=== PATIENT | female | born 1955 | race Two or more races ===

== ENCOUNTER → 2024-06-01 | Outpatient (CLI) | payer OTHER, MEDICAID, SELFPAY ==
[2024-06-01 10:04] LABS: Collection Type, Urine Clean Catch
[2024-06-01 10:24] LABS: Basophils % (Auto) 1 % (0-2.5); Eosinophils % (Auto) 0 % (0-10); Hematocrit 36.5 % (36.0-46.0); Hemoglobin 11.8 g/dL (12.0-16.0); Immature Granulocytes % (Auto) 2 % (0-0); Immature Granulocytes Auto 0.09 Thou/mm3 (0.00-0.00); Lymphocytes # (Auto) 1.1 Thou/mm3 (1.0-4.8); Lymphocytes % (Auto) 18 % (10-50); Mean Corpuscular HGB Conc 32.3 g/dl (31.0-37.0); Mean Corpuscular Hemoglobin 28.8 pg (25.0-35.0); Mean Corpuscular Volume 89 fL (80-100); Monocytes # (Auto) 0.4 Thou/mm3 (0.0-0.8); Monocytes % (Auto) 6 % (0-12); Neutrophils # (Auto) 4.5 Thou/mm3 (1.8-7.7); Neutrophils % (Auto) 74 % (37-80); Nucleated Red Blood Cell % 0 /100 WBC (0); Platelet Count 148 Thou/mm3 (140-440); RDW Standard Deviation 43.9 fL (36.4-46.3); White Blood Count 6.1 Thou/mm3 (3.6-11.0)
[2024-06-01 10:40] LABS: Bilirubin,Urine Negative (Negative); Blood,Urine Negative (Negative); Clarity,Urine Clear (Clear/Hazy); Color,Urine Yellow (Lt Yel-Yel); Glucose, Urine 2+ (Negative); Ketones,Urine Negative (Negative); Leukocyte Esterase,Urine Negative (Negative); Nitrite,Urine Negative (Negative); Protein,Urine Negative (Neg - Trace); RBC,Urine < 1 /hpf (0-3); Specific Gravity,Urine 1.012 (1.001-1.035); Squamous Epithelial Cell,Urine 6 /hpf (0-5); Urobilinogen,Urine Negative mg/dL (0.0-1.0); WBC,Urine < 1 /hpf (0-5)
[2024-06-01 10:46] LABS: Glucose Estimated Average 171 mg/dL (80-131); Hemoglobin A1C 7.6 % Hgb (4.8-6.0)
[2024-06-01 11:01] LABS: Alanine Aminotransferase 15 U/L (10-49); Albumin, Serum 4.4 gm/dL (3.4-4.8); Albumin/Globulin Ratio 1.8 (1.2-2.2); Alkaline Phosphatase 128 U/L (46-116); Anion Gap 6 (7-16); Aspartate Amino Transferase 14 U/L (0-34); BUN/Creatinine Ratio 20 Ratio (12-20); Bilirubin,Total 0.6 mg/dL (0.3-1.2); Blood Urea Nitrogen 12 mg/dL (9-23); Calcium 9.4 mg/dL (8.3-10.6); Calcium (Corrected) 9.4 mg/dL (8.5-10.1); Carbon Dioxide 30.9 mMol/L (20.0-31.0); Chloride 101 mMol/L (98-107); Cholesterol 148 mg/dL (132-200); Creatinine (Component) 0.6 mg/dL (0.6-1.3); Globulin 2.4 gm/dL (2.3-3.5); Glucose 156 mg/dL (74-106); HDL Cholesterol 74 mg/dL (40-60); LDL Cholesterol,Calculated 56 mg/dL (0-130); Osmolality,Calculated 278 (275-295); Potassium 4.2 mMol/L (3.4-5.1); Sodium 138 mMol/L (136-145); Total Protein 6.8 gm/dL (5.7-8.2); Triglycerides 88 mg/dL (30-150); eGFR > 60 See Note
[2024-06-01 11:12] LABS: Creatinine MALB Rnd Ur 48 mg/dL (30-125); Microalbumin, Random Urine < 3 mg/L (0-300)
== END | disposition home or self-care (01) ==
PROVIDERS: PCP Family Medicine; Referring Provider Family Medicine; Visit Provider Family Medicine
DX: E11.65 Type 2 diabetes mellitus with hyperglycemia (principal)
CPT/HCPCS: 36415; 80053; 80061; 81001; 82043; 82570; 83036; 85025

== ENCOUNTER → 2024-07-06 | Outpatient (CLI) | payer MEDICAID, SELFPAY ==
--- NOTE | 2024-07-06 08:30 | XR_ITS ---
Examination: Bone densitometry Date and time of exam:July 06, 2024 0827 hours INDICATIONS: Menopause age 54, diabetes Technique: Lumbar spine and hip total bone mineralization values of an calculated. Peak reference and age match control results have been displayed. Findings: Lumbar spine total bone mineralization is0.959 gm/cm2. This is 0.8 standard deviations below peak reference. This is 1.3 standard deviations above age-matched controls. Hip total bone mineralization is 0.657 gm/cm2 This is 2.3 standard deviations below peak reference. This is 0.8 standard deviations below age-matched controls Impression: There is normal mineralization based on lumbar spine measurements. There is osteoporosis based on hip measurements
[2024-07-06 10:47] LABS: Amphetamine/Methamp Scrn,U Negative (Negative); Barbiturate Screen,Urine Negative (Negative); Benzodiazepines Screen,Urine Negative (Negative); Benzoylecgonine Screen, Ur Negative (Negative); Fentanyl Screen,Urine Negative (Negative); Opiate Screen,Urine Positive (Negative); THC Screen,Urine Negative (Negative)
== END | disposition home or self-care (01) ==
LOC: CDIM 08:14 → COPL 09:28 → SLDO 09:28
PROVIDERS: Referring Provider Family Medicine; Visit Provider Radiology Diagnostic Radiology
DX: M81.8 Other osteoporosis without current pathological fracture (principal); M54.40 Lumbago with sciatica, unspecified side
CPT/HCPCS: 77080; 80307

== ENCOUNTER → 2024-09-24 | Outpatient (CLI) | payer OTHER, SELFPAY ==
--- NOTE | 2024-09-24 10:30 | XR_ITS ---
Examination: MRI brain without intravenous contrast. Date and time of exam: September 24, 2024 1023 hrs. Indications: Increasing memory loss beginning 2 years ago Technique: Multiple axial and sagittal images of the brain obtained. Siemens high-resolution 1.5 Alissa short bore scanners utilized. Sagittal sections, T1-weighted, TR 500, TE 14, are performed. Axial sections proton-density and T2-weighted have been obtained. Inversion recovery axial images, TR 9, 260, TE 111, TI 2500. Diffusion weighted images, axial sections, TR 4800, TE 128, B value 1000 Axial sections, ADC map, TR 4800, TE 128 Findings: Enlargement of the sella turcica is not present. The optic chiasm and infundibular are not remarkable. Prepontine and interpeduncular cisterns are not enlarged. There is no localized enlargement of the medulla or connor. Fourth ventricle and cerebellar tonsils appear normal in position. No subacute area of hemorrhage density is seen. Mass in the cerebellopontine angle region is not evident. Globes symmetrical. Orbital musculature including medial lateral rectus muscles do not exhibit abnormality. Diffusion-weighted images demonstrate no focus of restricted diffusion. Increased white matter signal mild Mass effect upon the ventricular system is not identified. Impression: Negative for acute hemorrhage, mass effect or midline shift No acute infarct Moderate atrophy
== END | disposition home or self-care (01) ==
LOC: SMRI 10:00
PROVIDERS: PCP Family Medicine; Referring Provider Family Medicine; Visit Provider Family Medicine
DX: G31.9 Degenerative disease of nervous system, unspecified (principal)
CPT/HCPCS: 70551

== ENCOUNTER 2025-01-20 01:18 | Emergency (ER) | payer OTHER, MEDICAID, SELFPAY ==
[2025-01-20 01:19] VITALS: BMI 26.2
[2025-01-20 02:09] VITALS: BP 195/84; PULSE 89; RESP 16; TEMP 37; O2SAT 97
[2025-01-20] MEDS: HYDROcodone/APAP 5/325 TABLET 1 TAB PO (02:26)
--- NOTE | 2025-01-20 02:35 | PD.EDRECHK ---
ED Recheck Abnl Lab Rx-RME/HPI General Chief Complaint: General Adult/Misc Complain Stated Complaint: WHOLE BODY PAIN Time Seen by Provider: 01/20/25 02:17 Arrival date/time: 01/20/25 01:18 69F with history of DM presents to ED with generalized body pains and shakiness because patient ran out of her meds. Patient has been taking 4 10-325 Norcos for over a year for her chronic back pain. Patient is on a pain contract. Patient will see prescriber on Thursday. Limitations: no limitations Related Data Home Medications ?Medication ?Instructions ?Recorded ?Confirmed estradiol 1 mg tablet 1 mg PO QDAY 05/03/20 05/03/20 hydrocodone 7.5 mg-acetaminophen 1 tab PO TID 05/03/20 05/03/20 325 mg tablet insulin human U-100 NPH-regulr 25 unit subcut QPM 05/03/20 05/03/20 70-30 mix 100 unit/mL subcutaneous susp (Novolin 70/30 U-100 Insulin) insulin human U-100 NPH-regulr 30 unit subcut QAM 05/03/20 05/03/20 70-30 mix 100 unit/mL subcutaneous susp (Novolin 70/30 U-100 Insulin) loratadine 10 mg tablet 10 mg PO QDAY 05/03/20 05/03/20 triamcinolone acetonide 0.1 % 1 applic topical BID 05/03/20 05/03/20 topical cream Previous Rx's ?Medication ?Instructions ?Recorded acetaminophen 500 mg capsule 1,000 mg (2 x 500 mg) PO Q6H PRN 05/03/20 fever or pain #30 caps ondansetron HCl 4 mg tablet 4 mg PO QID PRN nausea and 05/03/20 (Zofran) vomiting #10 tabs phenazopyridine 200 mg tablet 200 mg PO TID PRN pain #9 tabs 11/03/21 (Pyridium) ibuprofen 600 mg tablet 600 mg PO Q6H #30 tabs 09/11/22 hydrocodone 10 mg-acetaminophen 1 tab PO QDAY PRN pain #5 tabs 01/20/25 325 mg tablet Allergies Allergy/AdvReac Type Severity Reaction Status Date / Time No Known Allergies Allergy Verified 08/10/22 21:46 Review of Systems Review of Systems Systems Reviewed: All systems reviewed, normal except as documented Constitutional Constitutional: Reports system reviewed and no additional complaints, except as documented, Reports as per HPI, Reports body ache(s), Denies fever(s) and Denies headache(s) ENT Ears, Nose, Mouth, and Throat: Denies disequilibrium and Denies headache(s) Cardiovascular Cardiovascular: Reports system reviewed and no additional complaints, except as documented, Denies chest pain and Denies dyspnea Respiratory Respiratory: Reports system reviewed and no additional complaints, except as documented, Denies cough and Denies dyspnea Gastrointestinal Gastrointestinal: Reports system reviewed and no additional complaints, except as documented, Denies abdominal pain, Denies nausea and Denies vomiting Neurologic Neurologic: Reports system reviewed and no additional complaints, except as documented, Reports as per HPI, Denies confusion, Denies disequilibrium, Denies headache(s) and Reports tremor(s) Psychiatric Psychiatric: Denies confusion Past Medical History Past Medical History CARDIAC: Negative Congestive Heart Failure RESPIRATORY: Positive Chronic Obstructive Pulmonary Disease (COPD) GENITOURINARY: Negative Renal Disease ENDOCRINE: Positive Diabetes Mellitus Type 1; Negative Diabetes Mellitus Type 2 OTHER HISTORY: Positive Blood Transfusions Surgical History SURGICAL: Positive Hysterectomy Social History SMOKING STATUS: Never smoker SUBSTANCE USE: does not use ED Exam General Limitations: Present no limitations General appearance: Present alert, in no apparent distress and anxious Head Head exam: Present atraumatic Eye Eye exam: Present normal appearance, PERRL and EOMI ENT ENT exam: Present normal exam, normal oropharynx and mucous membranes moist Neck Neck exam: Present normal inspection, full ROM and trachea midline Chest Chest inspection: Present normal inspection and symmetric chest wall rise Respiratory Respiratory exam: Present normal lung sounds bilaterally Cardiovascular Cardiovascular exam: Present regular rate, normal rhythm and normal heart sounds Abdominal Exam Abdominal exam: Present soft and normal bowel sounds Extremities Exam Extremities exam: Present normal inspection and full ROM Back Exam Back exam: Present normal inspection and full ROM Neurological Exam Neurological exam: Present alert, oriented X3 and CN II-XII intact Psychiatric Psychiatric exam: Present normal affect and normal mood Skin Skin exam: Present warm, dry, intact and normal color Course Quality Measures none Orders Category Date Time Status HYDROcodone*/APAP 5/325 [[place] 5/325] Med 01/20/25 02:18 Discontinued 1 tab PO X1 ONE Vital Signs Vital signs: Vital Signs Temperature 98.6 F 01/20/25 02:09 Pulse Rate 89 01/20/25 02:09 Respiratory Rate 16 01/20/25 02:09 Blood Pressure 195/84 H 01/20/25 02:09 Pulse Oximetry (%) 97 01/20/25 02:09 Oxygen Delivery Method Room Air 01/20/25 02:09 O2 at 97% on RA and WNLs Recheck / Abnormal Lab / Rx MDM Narrative MDM Narrative:: 69F with history of DM presents to ED with generalized body pains and shakiness because patient ran out of her meds. Patient has been taking 4 10-325 Norcos for over a year for her chronic back pain. Patient is on a pain contract. Patient will see prescriber on Thursday. Physical exam reveals generalized restlessness. Patient is afebrile, alert, but anxious. Meds and activities counselor given. Patient data External records reviewed:: [facility] previous records Clinical information provided by:: patient Social determinants that could affect healthcare access:: none Patient has the following chronic illnesses:: DM How is presenting disease/condition affected by chronic disease/condition?: exacerbated by Evaluation data The following diagnostics were reviewed and interpreted by me:: other (specify) (none) Lab and/or radiology exams considered but not ordered:: not ordered Interpretation Summary: n/a Medications / Prescriptions Medications or Prescriptions considered but not ordered:: ordered Medication administrations:: Medication Administration History Discontinued Medications Hydrocodone Bitart/Acetaminophen (Hydrocodone/Apap 5/325 Tablet) 1 tab PO X1 ONE Stop: 01/20/25 02:19 Last Admin: 01/20/25 02:26 Dose: 1 tab Documented By: OA above Consultations Consultation(s) initiated? (list below): No Diagnosis Recheck Differential Diagnosis: encounter for medication refill, encounter for wound recheck, encounter for recheck of burn, encounter for removal of sutures, warfarin-induced coagulopathy and other (opioid withdrawal) Most likely diagnosis given after review of the tests above:: opioid withdrawal Admission Indicated Admission indicated?: not indicated Admission Request Was there a request for admission?: No Disposition Plan Disposition Plan: Discharge Discharge Attestation Discharge Attestation: The patient and all family members were given an opportunity to ask questions and understood the discharge instructions. Discharge instructions specifically effects, indications for sooner follow up or return to the emergency department, and the expected course of current diagnosis. Patient condition: Stable Discharge Plan Plan Patient Disposition: HOME (Self Care) Discharge Disposition comment: Stable Prescriptions/Referrals Prescriptions/Med Rec: New hydrocodone-acetaminophen 10-325 mg tablet 1 tab PO QDAY MDD 1 PRN (Reason: pain) Qty: 5 0RF No Action Novolin 70/30 U-100 Insulin 100 unit/mL (70-30) suspension 25 unit SUBCUT QPM Patient Comments: INJECT 30 UNITS SUBCUTANEOUSLY IN THE MORNING AND 25 UNITS IN THE EVENING Novolin 70/30 U-100 Insulin 100 unit/mL (70-30) suspension 30 unit SUBCUT QAM Patient Comments: INJECT 30 UNITS SUBCUTANEOUSLY IN THE MORNING AND 25 UNITS IN THE EVENING triamcinolone acetonide 0.1 % cream 1 applic TOPICAL BID Patient Comments: APPLY TO THE AFFECTED AREA(S) TWICE DAILY hydrocodone-acetaminophen 7.5-325 mg tablet 1 tab PO TID Patient Comments: TAKE ONE TABLET BY MOUTH THREE TIMES DAILY NEEDED FOR PAIN loratadine 10 mg tablet 10 mg PO QDAY estradiol 1 mg tablet 1 mg PO QDAY ondansetron HCl [Zofran] 4 mg tablet 4 mg PO QID PRN (Reason: nausea and vomiting) Qty: 10 0RF acetaminophen 500 mg capsule 1,000 mg PO Q6H PRN (Reason: fever or pain) Qty: 30 0RF phenazopyridine [Pyridium] 200 mg tablet 200 mg PO TID PRN (Reason: pain) Qty: 9 0RF ibuprofen 600 mg tablet 600 mg PO Q6H Qty: 30 0RF Problem List Clinical Impression: Opioid withdrawal Patient/Caregiver Discharge Instructions Education Materials: Hyperalgesia Opioid Induced, ED Opioid Withdrawal Additional Instructions: Please follow-up with PCP within 24-48 hours and return immediately if symptoms worsen. Would recommend tapering down with PCP/pain specialist. Print Language: Thai Stand Alone Forms: Patient Portal Info Letter PA/ROLLED HAM LACER Supervising Physician PA/ROLLED HAM LACER Supervising Physician: Dr. Meneses
== END 2025-01-20 02:35 | disposition home or self-care (01) ==
LOC: SERX 02:24
PROVIDERS: Emergency Provider Emergency Medicine; PCP Family Medicine
DX: F11.23 Opioid dependence with withdrawal (principal); R45.1 Restlessness and agitation
CPT/HCPCS: 99282; A9270

== ENCOUNTER 2025-01-26 23:16 | Emergency (ER) | payer OTHER, MEDICAID, SELFPAY ==
[2025-01-26 23:17] VITALS: BMI 26.6
[2025-01-26 23:27] VITALS: BP 188/103; PULSE 89; RESP 19; TEMP 37.2; O2SAT 98
[2025-01-27] MEDS: MORPHINE SULF LIQD 10 MG/5 ML UDC PO (00:03)
--- NOTE | 2025-01-27 01:46 | PD.EDBACK ---
ED Back Injury Pain RME/HPI General Chief Complaint: Back Pain/Injury Stated Complaint: CHRONIC BACK PAIN WORSENING TODAY Time Seen by Provider: 01/26/25 23:47 Arrival date/time: 01/26/25 23:16 69F with history of DM and chronic opioid use presents to ED with 1 day of burning pain from neck to tailbone. Patient was recently for this as well. Patient has been taking 10 mg Norcos 4x per day for >1 year due to chronic back pain. Patient went to PCP and dropped her to 5 mg 4x per day. Patient denies fall/trauma, paresthesia, and bowel/bladder incontinence. Limitations: no limitations Related Data Home Medications ?Medication ?Instructions ?Recorded ?Confirmed estradiol 1 mg tablet 1 mg PO QDAY 05/03/20 05/03/20 hydrocodone 7.5 mg-acetaminophen 1 tab PO TID 05/03/20 05/03/20 325 mg tablet insulin human U-100 NPH-regulr 25 unit subcut QPM 05/03/20 05/03/20 70-30 mix 100 unit/mL subcutaneous susp (Novolin 70/30 U-100 Insulin) insulin human U-100 NPH-regulr 30 unit subcut QAM 05/03/20 05/03/20 70-30 mix 100 unit/mL subcutaneous susp (Novolin 70/30 U-100 Insulin) loratadine 10 mg tablet 10 mg PO QDAY 05/03/20 05/03/20 triamcinolone acetonide 0.1 % 1 applic topical BID 05/03/20 05/03/20 topical cream Previous Rx's ?Medication ?Instructions ?Recorded acetaminophen 500 mg capsule 1,000 mg (2 x 500 mg) PO Q6H PRN 05/03/20 fever or pain #30 caps ondansetron HCl 4 mg tablet 4 mg PO QID PRN nausea and 05/03/20 (Zofran) vomiting #10 tabs phenazopyridine 200 mg tablet 200 mg PO TID PRN pain #9 tabs 11/03/21 (Pyridium) ibuprofen 600 mg tablet 600 mg PO Q6H #30 tabs 09/11/22 hydrocodone 10 mg-acetaminophen 1 tab PO QDAY PRN pain #5 tabs 01/20/25 325 mg tablet Allergies Allergy/AdvReac Type Severity Reaction Status Date / Time No Known Allergies Allergy Verified 01/26/25 23:19 Review of Systems Review of Systems Systems Reviewed: All systems reviewed, normal except as documented Constitutional Constitutional: Reports system reviewed and no additional complaints, except as documented, Denies fever(s) and Denies headache(s) ENT Ears, Nose, Mouth, and Throat: Denies disequilibrium and Denies headache(s) Cardiovascular Cardiovascular: Reports system reviewed and no additional complaints, except as documented, Denies chest pain and Denies dyspnea Respiratory Respiratory: Reports system reviewed and no additional complaints, except as documented, Denies cough and Denies dyspnea Gastrointestinal Gastrointestinal: Reports system reviewed and no additional complaints, except as documented, Denies abdominal pain, Denies nausea and Denies vomiting Musculoskeletal Musculoskeletal: Reports as per HPI and Reports back pain Neurologic Neurologic: Reports system reviewed and no additional complaints, except as documented, Denies confusion, Denies disequilibrium and Denies headache(s) Psychiatric Psychiatric: Denies confusion Past Medical History Past Medical History CARDIAC: Negative Congestive Heart Failure RESPIRATORY: Positive Chronic Obstructive Pulmonary Disease (COPD) GENITOURINARY: Negative Renal Disease ENDOCRINE: Positive Diabetes Mellitus Type 1; Negative Diabetes Mellitus Type 2 OTHER HISTORY: Positive Blood Transfusions Surgical History SURGICAL: Positive Hysterectomy Social History SMOKING STATUS: Never smoker SUBSTANCE USE: does not use ED Exam General Limitations: Present no limitations General appearance: Present alert and in no apparent distress Head Head exam: Present atraumatic Eye Eye exam: Present normal appearance, PERRL and EOMI ENT ENT exam: Present normal exam, normal oropharynx and mucous membranes moist Neck Neck exam: Present normal inspection, full ROM and trachea midline Chest Chest inspection: Present normal inspection and symmetric chest wall rise Respiratory Respiratory exam: Present normal lung sounds bilaterally Cardiovascular Cardiovascular exam: Present regular rate, normal rhythm and normal heart sounds Abdominal Exam Abdominal exam: Present soft and normal bowel sounds Extremities Exam Extremities exam: Present normal inspection and full ROM Back Exam Back exam: Present normal inspection and full ROM Neurological Exam Neurological exam: Present alert, oriented X3 and CN II-XII intact Psychiatric Psychiatric exam: Present normal affect and normal mood Skin Skin exam: Present warm, dry, intact and normal color Course Quality Measures none Orders Category Date Time Status Morphine Oral LIQUID Med 01/26/25 23:56 Discontinued 10 mg PO X1 ONE Vital Signs Vital signs: Vital Signs Temperature 98.9 F 01/26/25 23:27 Pulse Rate 89 01/26/25 23:27 Respiratory Rate 19 01/26/25 23:27 Blood Pressure 188/103 H 01/26/25 23:27 Pulse Oximetry (%) 98 01/26/25 23:27 Oxygen Delivery Method Room Air 01/26/25 23:27 O2 at 98% on RA and WNLs Back Pain / Injury MDM Narrative MDM Narrative:: 69F with history of DM and chronic opioid use presents to ED with 1 day of burning pain from neck to tailbone. Patient was recently for this as well. Patient has been taking 10 mg Norcos 4x per day for >1 year due to chronic back pain. Patient went to PCP and dropped her to 5 mg 4x per day. Patient denies fall/trauma, paresthesia, and bowel/bladder incontinence. Physical exam reveals uncomfortable female. Normal WOB. Speech normal. Gait normal. Patient is afebrile, alert, but anxious. Likely opioid withdrawal due to too fast of a taper (50% reduction in dose). Meds and veterans' counselor given. Patient data External records reviewed:: [facility] previous records Clinical information provided by:: patient Social determinants that could affect healthcare access:: none Patient has the following chronic illnesses:: DM How is presenting disease/condition affected by chronic disease/condition?: exacerbated by Evaluation data The following diagnostics were reviewed and interpreted by me:: other (specify) (none) Lab and/or radiology exams considered but not ordered:: not ordered Interpretation Summary: n/a Medications / Prescriptions Medications or Prescriptions considered but not ordered:: ordered Medication administrations:: Medication Administration History Discontinued Medications Morphine Sulfate (Morphine Sulf Liqd 10 Mg/5 Ml Udc) 10 mg PO X1 ONE Stop: 01/26/25 23:57 Last Admin: 01/27/25 00:03 Dose: 10 mg Documented By: OA above Consultations Consultation(s) initiated? (list below): No Diagnosis Differential diagnosis back pain/injury: lumbar radiculopathy, sciatica, strain of lumbar region, renal colic, pyelonephritis, thoracic back pain, AAA, discitis and other (back pain, opioid withdrawal) Most likely diagnosis given after review of the tests above:: back pain, opioid withdrawal Admission Indicated Admission indicated?: not indicated Admission Request Was there a request for admission?: No Disposition Plan Disposition Plan: Discharge Discharge Attestation Discharge Attestation: The patient and all family members were given an opportunity to ask questions and understood the discharge instructions. Discharge instructions specifically effects, indications for sooner follow up or return to the emergency department, and the expected course of current diagnosis. Patient condition: Stable Discharge Plan Plan Patient Disposition: HOME (Self Care) Discharge Disposition comment: Stable Prescriptions/Referrals Prescriptions/Med Rec: No Action Novolin 70/30 U-100 Insulin 100 unit/mL (70-30) suspension 25 unit SUBCUT QPM Patient Comments: INJECT 30 UNITS SUBCUTANEOUSLY IN THE MORNING AND 25 UNITS IN THE EVENING Novolin 70/30 U-100 Insulin 100 unit/mL (70-30) suspension 30 unit SUBCUT QAM Patient Comments: INJECT 30 UNITS SUBCUTANEOUSLY IN THE MORNING AND 25 UNITS IN THE EVENING triamcinolone acetonide 0.1 % cream 1 applic TOPICAL BID Patient Comments: APPLY TO THE AFFECTED AREA(S) TWICE DAILY hydrocodone-acetaminophen 7.5-325 mg tablet 1 tab PO TID Patient Comments: TAKE ONE TABLET BY MOUTH THREE TIMES DAILY NEEDED FOR PAIN loratadine 10 mg tablet 10 mg PO QDAY estradiol 1 mg tablet 1 mg PO QDAY ondansetron HCl [Zofran] 4 mg tablet 4 mg PO QID PRN (Reason: nausea and vomiting) Qty: 10 0RF acetaminophen 500 mg capsule 1,000 mg PO Q6H PRN (Reason: fever or pain) Qty: 30 0RF phenazopyridine [Pyridium] 200 mg tablet 200 mg PO TID PRN (Reason: pain) Qty: 9 0RF hydrocodone-acetaminophen 10-325 mg tablet 1 tab PO QDAY MDD 1 PRN (Reason: pain) Qty: 5 0RF ibuprofen 600 mg tablet 600 mg PO Q6H Qty: 30 0RF Problem List Clinical Impression: Back pain, Opioid withdrawal Patient/Caregiver Discharge Instructions Education Materials: ED Back Pain (Acute or Chronic), ED Opioid Withdrawal Additional Instructions: Please follow-up with PCP within 24-48 hours and return immediately if symptoms worsen. If problem persists, recommend outpatient PT and/or MRI follow-up. In the meantime, rest, use ice/heat, and/or compression. Patient likely needs a slower taper, such as going down to 7.5 mg 4x a day or 10 mg 3x a day. Print Language: Arabic Stand Alone Forms: Patient Portal Info Letter AMITA/ASHLEY Supervising Physician AMITA/ASHLEY Supervising Physician: Dr. Shannon
== END 2025-01-27 00:06 | disposition home or self-care (01) ==
LOC: SERX 01-27 01:07
PROVIDERS: Emergency Provider Emergency Medicine; PCP Family Medicine
DX: M54.2 Cervicalgia (principal); M54.50 Low back pain, unspecified; G89.29 Other chronic pain; F11.23 Opioid dependence with withdrawal
CPT/HCPCS: 99282; A9270

== ENCOUNTER → 2025-05-11 | Outpatient (CLI) | payer OTHER, MEDICAID, SELFPAY ==
[2025-05-11 12:46] LABS: Albumin, Serum 4.4 gm/dL (3.4-4.8); Anion Gap 9 (7-16); BUN/Creatinine Ratio 13 Ratio (12-20); Blood Urea Nitrogen 9 mg/dL (9-23); Calcium 9.1 mg/dL (8.3-10.6); Calcium (Corrected) 9.1 mg/dL (8.5-10.1); Carbon Dioxide 29.0 mMol/L (20.0-31.0); Chloride 99 mMol/L (98-107); Creatinine (Component) 0.7 mg/dL (0.6-1.3); Glucose 174 mg/dL (74-106); Osmolality,Calculated 276 (275-295); Phosphorous 3.2 mg/dL (2.4-5.1); Potassium 3.9 mMol/L (3.4-5.1); Sodium 137 mMol/L (136-145); eGFR > 60 See Note
== END | disposition home or self-care (01) ==
LOC: COPL 11:54
PROVIDERS: PCP Family Medicine; Referring Provider Family Medicine; Visit Provider Family Medicine
DX: E11.65 Type 2 diabetes mellitus with hyperglycemia (principal)
CPT/HCPCS: 36415; 80069

== ENCOUNTER → 2025-05-15 | Outpatient (CLI) | payer OTHER, MEDICAID, SELFPAY ==
--- NOTE | 2025-05-15 14:21 | XR_ITS ---
Examination: Screening digital mammography, bilateral Computer aided detection 3-D breast Tomosynthesis, bilateral Date and time of exam: May 15, 2025, 1426 hours, compared to mammograms dating to February 15, 2015 Indication: Screening Technique: Nonmagnified MLO, CC views of the breasts to been obtained, reconstructed from 3-D Tomosynthesis images. R2 computer aided detection program utilized for evaluation of suspicious masses and/or abnormal calcifications. 3-D Tomosynthesis images obtained. Findings: Scattered areas of fibroglandular density. Circumscribed nodule inner right breast on the cc view measures 18 mm compared to 15 mm on February 15, 2025 Impression: BI-RADS Category 0: Incomplete: Need additional imaging evaluation Recommend bilateral breast sonography follow-up to assess enlarging circumscribed nodule inner right breast on the current cc view, measuring 18 mm
--- NOTE | 2025-05-15 15:10 | XR_ITS ---
Examination: CT chest with intravenous contrast 2-D sagittal and coronal reconstructions Exam date and time: May 15, 2025, 1556 hours INDICATIONS: Shortness of breath chest pain beginning 1 week ago CTDI:vol (mGy) 11.7 DLP: (mGycm) 367 Technique: Multiple axial sections of the thorax have been obtained. Sections have been obtained, 3 mm slice thickness. Mediastinal and lung density settings have been obtained. Intravenous contrast administered, 60 cc [id number]-370. 2-D sagittal, coronal images obtained. Low dose protocols were performed. One or more of the following dose reduction techniques were used; automated exposure control, adjustment of the mA and/or KV according to patient size, use of iterative reconstruction technique. Findings: No thoracic aortic aneurysmal dilatation or dissection Negative for pulmonary artery emboli No mediastinal lymphadenopathy No pneumonia or pulmonary edema or pleural disease Anterior lower chest subcutaneous nodule, 22 mm Cirrhosis, liver irregular in contour, absent gallbladder Suspicious for 39 mm lesion in the lower right lobe of the liver No pancreatic mass Intact kidneys no hydronephrosis Moderate diffuse thoracic degenerative disc disease IMPRESSION: No mediastinal lymphadenopathy No pneumonia or pulmonary edema or pleural disease Anterior lower chest subcutaneous nodule 22 mm, recommend ultrasound soft tissue follow-up of this nodule Cirrhosis Suspicious for 39 mm lesion in the right lower lobe of the liver, recommend MRI abdomen liver follow-up pre and postcontrast
== END | disposition home or self-care (01) ==
PROVIDERS: PCP Family Medicine; Referring Provider Family Medicine; Visit Provider Family Medicine
DX: Z12.31 Encounter for screening mammogram for malignant neoplasm of breast (principal); R92.8 Other abnormal and inconclusive findings on diagnostic imaging of breast; N63.10 Unspecified lump in the right breast, unspecified quadrant; R22.2 Localized swelling, mass and lump, trunk; K74.60 Unspecified cirrhosis of liver
CPT/HCPCS: 71260; 77063; 77067; A4649; Q9967

== ENCOUNTER 2025-05-29 12:09 | Emergency (ER) | payer OTHER, MEDICAID, SELFPAY ==
[2025-05-29 12:22] VITALS: BP 169/86; PULSE 88; RESP 18; TEMP 37.1; O2SAT 98
[2025-05-29 12:24] VITALS: BMI 28.5
--- NOTE | 2025-05-29 12:24 | PD.EDALLER ---
ED Allergic Reaction RME/HPI General Chief complaint: Skin/Abscess/Foreign Body Stated complaint: GENERALIZED RASH Time Seen by Provider: 05/29/25 12:24 Arrival date/time: 05/29/25 12:09 RME / HPI Known history of allergy to: See [facility] for Dr. Shannon's HPI Documentation. Related Data Home Medications ?Medication ?Instructions ?Recorded ?Confirmed estradiol 1 mg tablet 1 mg PO QDAY 05/03/20 05/03/20 hydrocodone 7.5 mg-acetaminophen 1 tab PO TID 05/03/20 05/03/20 325 mg tablet insulin human U-100 NPH-regulr 25 unit subcut QPM 05/03/20 05/03/20 70-30 mix 100 unit/mL subcutaneous susp (Novolin 70/30 U-100 Insulin) insulin human U-100 NPH-regulr 30 unit subcut QAM 05/03/20 05/03/20 70-30 mix 100 unit/mL subcutaneous susp (Novolin 70/30 U-100 Insulin) loratadine 10 mg tablet 10 mg PO QDAY 05/03/20 05/03/20 triamcinolone acetonide 0.1 % 1 applic topical BID 05/03/20 05/03/20 topical cream Previous Rx's ?Medication ?Instructions ?Recorded acetaminophen 500 mg capsule 1,000 mg (2 x 500 mg) PO Q6H PRN 05/03/20 fever or pain #30 caps ondansetron HCl 4 mg tablet 4 mg PO QID PRN nausea and 05/03/20 (Zofran) vomiting #10 tabs phenazopyridine 200 mg tablet 200 mg PO TID PRN pain #9 tabs 11/03/21 (Pyridium) ibuprofen 600 mg tablet 600 mg PO Q6H #30 tabs 09/11/22 hydrocodone 10 mg-acetaminophen 1 tab PO QDAY PRN pain #5 tabs 01/20/25 325 mg tablet prednisone 50 mg tablet 50 mg PO BID #5 tabs 05/29/25 Allergies Allergy/AdvReac Type Severity Reaction Status Date / Time No Known Allergies Allergy Verified 05/29/25 12:14 Review of Systems Review of Systems Systems Reviewed: All systems reviewed, normal except as documented Past Medical History Past Medical History RESPIRATORY: Positive Chronic Obstructive Pulmonary Disease (COPD) ENDOCRINE: Positive Diabetes Mellitus Type 1 Surgical History SURGICAL: Positive Hysterectomy ED Exam Narrative Physical exam: See [facility] for Dr. Shannon's Physical Exam Documentation. Course Quality Measures none Orders Category Date Time Status MethylPREDNISolone.* [SoluMEDROL Inj] Med 05/29/25 12:25 Discontinued 125 mg IM X1 ONE Vital Signs Vital signs: Vital Signs Temperature 98.7 F 05/29/25 12:22 Pulse Rate 88 05/29/25 12:22 Respiratory Rate 18 05/29/25 12:22 Blood Pressure 169/86 H 05/29/25 12:22 Pulse Oximetry (%) 98 05/29/25 12:22 Oxygen Delivery Method Room Air 05/29/25 12:22 Allergic Reaction MDM Narrative [facility] Narrative:: This section includes all my notes and documentations, including HPI, PE, and ED course. Yariel Shannon MD HPI: 70 y/o female here with rash and facial swelling since last night after eating soup made of shrimp and fish. Never diagnosed with shrimp/fish allergy. But avoided shrimp and seafood all her life. No throat tightness. No shortness of breath. No other complaints. ROS: All negative except as documented in HPI. Physical Exam: General: Alert and oriented. No acute distress when remaining still. HEENT: Conjunctivae and lids clear. Patent airway. No signs of angioedema. Neck: Supple. Heart: RRR. Lungs: No respiratory distress. Good air movement. No rhonchi, wheezing, rales. Abdomen: Soft and nontender. Skin: Warm and dry. Patches of erythema scattered with no obvious pattern, varying in size and shape. Neuro: Alert and oriented X 3. At this point, diagnoses include: Allergic Reaction Treatment here included: SoluMedrol 125 mg IM She started to feel better. Recommended outpatient care. Based on my best medical judgment, made decision no further evaluation or treatment indicated at this time. Patient understands and agrees to the discharge instructions customized and printed, see below. Discharge instructions from Dr. Shannon: 1. You were treated today for allergic reaction. Avoid shrimp and seafood. 2. To help prevent the reaction going into your airways and your throat, take prednisone as prescribed. 3. And take Benadryl 50 mg every 6-8 hours today and tomorrow then as needed. 4. Increase oral fluid and maintain clear urine.? If dark or yellow, increase oral fluid.? This will help eliminate any allergens in your blood system. 5. For your right upper eyelid sty (see attached handout), apply warm compress (use warm boiled egg) throughout the day is much as possible. This will help unplug the gland blockage causing the sty. 6. See your private doctor on 05/31/2025 for recheck. Ask for a referral to see an mapping pilot so you can be tested to know what to avoid in the future. 7. Seek immediate medical care with worsening, breathing difficulty, or with any concerns. Yariel Shannon MD Patient data External records reviewed:: [facility] previous records (Reviewed prior ED records from 01/27/25. Patient was seen for Back pain.) Clinical information provided by:: patient Social determinants that could affect healthcare access:: none Patient has the following chronic illnesses:: Type I DM, COPD How is presenting disease/condition affected by chronic disease/condition?: exacerbated by Evaluation data The following diagnostics were reviewed and interpreted by me:: other (specify) (N/A) Lab and/or radiology exams considered but not ordered:: None Interpretation Summary: None Medications / Prescriptions Medications or Prescriptions considered but not ordered:: None Medication administrations:: Medication Administration History Discontinued Medications Methylprednisolone Sodium Succinate (Methylprednisolone Sod Succ 62.5 Mg/Ml 2ml Vial) 125 mg IM X1 ONE Stop: 05/29/25 12:26 Last Admin: 05/29/25 12:38 Dose: 125 mg Documented By: OA SoluMedrol 125 mg IM Consultations Consultation(s) initiated? (list below): No Diagnosis Differential Diagnosis allergic reaction: anaphylaxis, allergic reaction, angioedema, contact dermatitis, viral enanthem and urticaria Most likely diagnosis given after review of the tests above:: Allergic Reaction, most likely due to shrimp and seafood Admission Indicated Admission indicated?: not indicated Explain why admission is indicated or not indicated:: With significant improvement and no condition needing emergent intervention, there was no indication for admission. Admission Request Was there a request for admission?: No Disposition Plan Disposition Plan: Discharge Discharge Attestation Discharge Attestation: The patient and all family members were given an opportunity to ask questions and understood the discharge instructions. Discharge instructions specifically effects, indications for sooner follow up or return to the emergency department, and the expected course of current diagnosis. Patient condition: Stable Discharge Plan Plan Patient Disposition: HOME (Self Care) Prescriptions/Referrals Prescriptions/Med Rec: New prednisone 50 mg tablet 50 mg PO BID Qty: 5 0RF No Action Novolin 70/30 U-100 Insulin 100 unit/mL (70-30) suspension 25 unit SUBCUT QPM Patient Comments: INJECT 30 UNITS SUBCUTANEOUSLY IN THE MORNING AND 25 UNITS IN THE EVENING Novolin 70/30 U-100 Insulin 100 unit/mL (70-30) suspension 30 unit SUBCUT QAM Patient Comments: INJECT 30 UNITS SUBCUTANEOUSLY IN THE MORNING AND 25 UNITS IN THE EVENING triamcinolone acetonide 0.1 % cream 1 applic TOPICAL BID Patient Comments: APPLY TO THE AFFECTED AREA(S) TWICE DAILY hydrocodone-acetaminophen 7.5-325 mg tablet 1 tab PO TID Patient Comments: TAKE ONE TABLET BY MOUTH THREE TIMES DAILY NEEDED FOR PAIN loratadine 10 mg tablet 10 mg PO QDAY estradiol 1 mg tablet 1 mg PO QDAY ondansetron HCl [Zofran] 4 mg tablet 4 mg PO QID PRN (Reason: nausea and vomiting) Qty: 10 0RF acetaminophen 500 mg capsule 1,000 mg PO Q6H PRN (Reason: fever or pain) Qty: 30 0RF phenazopyridine [Pyridium] 200 mg tablet 200 mg PO TID PRN (Reason: pain) Qty: 9 0RF hydrocodone-acetaminophen 10-325 mg tablet 1 tab PO QDAY MDD 1 PRN (Reason: pain) Qty: 5 0RF ibuprofen 600 mg tablet 600 mg PO Q6H Qty: 30 0RF Problem List Clinical Impression: Allergic reaction Patient/Caregiver Discharge Instructions Discharge Activity: activity as tolerated Education Materials: ED Food Allergy, ED Sty Additional Instructions: Discharge instructions from Dr. Shannon: 1. You were treated today for allergic reaction. Avoid shrimp and seafood. 2. To help prevent the reaction going into your airways and your throat, take prednisone as prescribed. 3. And take Benadryl 50 mg every 6-8 hours today and tomorrow then as needed. 4. Increase oral fluid and maintain clear urine.? If dark or yellow, increase oral fluid.? This will help eliminate any allergens in your blood system. 5. For your right upper eyelid sty (see attached handout), apply warm compress (use warm boiled egg) throughout the day is much as possible. This will help unplug the gland blockage causing the sty. 6. See your private doctor on 05/31/2025 for recheck. Ask for a referral to see an mapping pilot so you can be tested to know what to avoid in the future. 7. Seek immediate medical care with worsening, breathing difficulty, or with any concerns. Print Language: Chinese Stand Alone Forms: [employer] Info., Patient Portal Info Letter
[2025-05-29] MEDS: MethylPREDNISolone SOD SUCC 62.5 MG/ML 2ML VIAL 125 MG IM (12:38)
== END 2025-05-29 12:42 | disposition home or self-care (01) ==
LOC: SERX 13:46
PROVIDERS: Emergency Provider Emergency Medicine
DX: T78.19XA Other adverse food reactions, not elsewhere classified, initial encounter (principal); L27.2 Dermatitis due to ingested food; X58.XXXA Exposure to other specified factors, initial encounter
CPT/HCPCS: 96372; 99282; J2919

== ENCOUNTER → 2025-06-06 | Outpatient (CLI) | payer OTHER, MEDICAID, SELFPAY ==
--- NOTE | 2025-06-06 | XR_ITS ---
Examination: Breast ultrasound, unilateral, right complete Date and time of exam: June 06, 2025, 1212 hours INDICATIONS: Mammogram 05/15/2025 18 mm circumscribed nodule inner right breast on the CC view Technique: Real-time keyes scale ultrasonographic imaging performed right breast including all 4 quadrants as well as nipple retroareolar and axillary region. Findings: 4:00 circumscribed nodule 2.4 x 1.3 x 2.4 cm IMPRESSION: BI-RADS Category 3: Probably benign findings 3 to 6-month continued right breast sonogram follow-up strongly recommended
== END | disposition home or self-care (01) ==
PROVIDERS: PCP Family Medicine; Referring Provider Family Medicine; Visit Provider Family Medicine
DX: D24.1 Benign neoplasm of right breast (principal)
CPT/HCPCS: 76641